=== PATIENT | male | born 1965 | race Caucasian/White ===

== ENCOUNTER 2021-09-28 12:12 | Outpatient (CLI) | payer OTHER | END 2021-09-28 12:13 | disposition home or self-care (01) | LOC: SCSMRI 12:12 | PROVIDERS: ATTEND Nurse Practitioner Family | DX: M51.16 Intervertebral disc disorders with radiculopathy, lumbar region (principal); M47.26 Other spondylosis with radiculopathy, lumbar region; M48.061 Spinal stenosis, lumbar region without neurogenic claudication; M53.86 Other specified dorsopathies, lumbar region | CPT/HCPCS: 72148 ==